=== PATIENT | male | born 1995 | race Native Hawaiian/Other Pacific Islander ===

== ENCOUNTER 2018-11-26 10:55 | Outpatient (CLI) | payer OTHER ==
[2018-11-26 11:34] VITALS: BP 90/50
--- NOTE | 2018-11-26 11:34 | SLEEP CARE CONSULTATION ---
Information from patient questionnaire entered by Jessy Vail. I have reviewed and concur with the information entered by Jessy Vail. This document represents the service I personally performed and the decisions made by me, Rashawn James MD, [facility]. History of Present Illness Reason for Visit: New patient Chief Complaint: reports: Snoring, Observed pauses in breathing Usual bedtime: 2300 Time it takes to fall asleep: 30 MINUTES Snores at night: Yes Observed to quit breathing while asleep: No Sleeps alone due to snoring: Yes Number of times waking at night: 1-2 Reasons for waking at night: reports: Snoring Toss, Turn, or Twitch while sleeping: Yes Recalls having dreams: Yes Usually gets out of bed at: 0600 Feels refreshed in the morning: No Morning headache: No Sleepy or fatigued during the day: Yes Ever fallen asleep while driving: No Takes day naps: No Dreams during day naps: Yes Prior sleep studies: No Additional HPI information: I had the pleasure of seeing Mr. Juarez today regarding the possibility of him having a sleep disorder. As you know, he is a 23 year old gentleman who states that his has been telling him that he quits breathing at night. The patient tells me that he normally goes to bed around 11 pm, and it takes him approximately 30 minutes to fall asleep. He has not been told that he snores loudly and irregularly at night. He has also been observed to stop breathing in his sleep. His occasionally has to sleep in a separate room. He can recall waking up on the average of 1 - 2 times during the night. Most of the time he wakes up because of his son. He has awakened occasionally because of his own snoring, choking, and having to gasp for air. There is a lot of tossing and turning in his sleep. No somniloquy (sleep talking) or somnambulism (sleep walking). Generally he can recall having dreams. In the morning he usually gets up out of the bed around 6 a.m. not feeling refreshed nor rested. He usually does not have a morning headache. During the day he complains of feeling sleepy and fatigued. His score on Blanding Sleepiness Scale is 14 out of 24. He has never fallen asleep while driving nor has had any accident due to sleepiness. He usually does not take naps during the day. He has never had sleep paralysis, experienced cataplexy or symptoms of restless leg syndrome. He reports having impaired concentration during the day. 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 Patient is and lives in [place]. Have you smoked in the past 12 months: No Alcohol use: No Caffeine use: No Family History Family history of sleep disordered breathing: Yes Family Hx Sleep Apnea: Grandparent: Snoring Allergies and Home Medications Drug allergies reviewed: Yes Home medication list reviewed: Yes Review of Systems Cardiovascular: denies: high blood pressure, palpitations, chest pain, irregular heart rate or pulse, leg or foot swelling, have to sleep sitting up, other Respiratory: denies: shortness of breath, wheeze, sputum production, chronic cough, other Gastrointestinal: denies: heartburn, difficulty swallowing, nausea, vomitting, diarrhea, abdominal pain, other Urinary: denies: incontinence, frequency, urgency, impotence, other Neurological: denies: headaches, seizure, head trauma, disorientation, speech dysfunction, gait or balance problems, fainting or unconsciousness, other Psychiatric: denies: Attention Deficit Hyperactivity, anxiety, depression, mood disorder, claustrophobia, other Ear/Nose/Throat: reports: nasal congestion, sinus problems Endocrine: denies: thyroid disease, history of goiter, sluggishness, too hot or cold, excessive thirst, increased appetite, increased urination, unexplained weakness, other Musculoskeletal: reports: back pain Immunologic: reports: sneezing Physical Exam Vital signs obtained and entered by: Dr. Sr Blood Pressure: 90/50 Heart Rate: 71 O2 Saturation: 97 Height: 5 ft 11 in Weight (kg): 175 lb Body Mass Index: 24.4 BMI Classification: Healthy weight Neck circumference: 14 Mood/affect: normal HEENT: No craniofacial malformation Nostrils: patent to airflow Turbinates: normal Septum: deviated right Mouth and throat: narrow oropharynx Soft palate: long Hard palate: normal Uvula: normal Uvula visualization: 50% Mallampati Class II Tongue: normal in size Tonsils: small Chin and jaw: normal size and position Neck: normal w/o lymphadenopathy or thyromegaly Heart: regular rate and rhythm Lungs: clear bilaterally Abdomen: soft, non-tender Extremities: no edema or clubbing Neurologic: intact, no focal deficits Impression and Plan IMPRESSION: 1. Obstructive Sleep Apnea-Hypopnea Syndrome, as suggested by history of loud and irregular snoring, observed cessation of breath while asleep, unrefreshed sleep, cognitive impairment, and daytime hypersomnolence. Narrow oropharynx is a common predisposing factor for obstructive sleep apnea-hypopnea syndrome. Pathophysiology of sleep-disordered breathing was discussed. I recommend proceeding to polysomnography to confirm the diagnosis and to assess severity. I informed the patient of what the sleep studies involve and after some discussion, he agreed to proceed. Plan: 1. Schedule polysomnography and return in 1 to 2 weeks after the study to discuss result and initiate therapy. 2. Avoid long distance driving or when feeling sleepy. 3. Avoid alcohol, sedative and muscle relaxant around bedtime. I spent 100% of this 15 minute visit face to face with the patient with greater than 50% of this was spent time counseling the patient and coordination of care.
== END 2018-11-26 10:56 | disposition home or self-care (01) ==
LOC: SC 10:55
PROVIDERS: ATTEND Internal Medicine Pulmonary Disease
DX: R06.83 Snoring (principal); R06.81 Apnea, not elsewhere classified; G47.8 Other sleep disorders; R41.89 Other symptoms and signs involving cognitive functions and awareness; G47.10 Hypersomnia, unspecified
CPT/HCPCS: 99203; 99212

== ENCOUNTER 2018-12-12 19:10 | Outpatient (CLI) | payer OTHER | END 2018-12-12 19:11 | disposition home or self-care (01) | LOC: SC 19:10 | PROVIDERS: ATTEND Internal Medicine Pulmonary Disease | DX: R06.83 Snoring (principal) | CPT/HCPCS: 95810 ==

== ENCOUNTER 2019-02-11 16:09 | Outpatient (CLI) | payer OTHER ==
[2019-02-11 17:05] VITALS: BP 102/60
--- NOTE | 2019-02-11 17:05 | SLEEP CARE CONSULTATION ---
Information from patient questionnaire entered by Jessy Vail. I have reviewed and concur with the information entered by Jessy Vail. This document represents the service I personally performed and the decisions made by me, Lizzy Cavazos, RN, MSN, [employer]. History of Present Illness Reason for follow up: with sleep study Prior sleep studies: Yes Year and Where: 2018 [facility] additional information: NARESH SANTIAGO returns for follow up of the recently performed polysomnography and informed of findings. I explained the pathophysiology behind obstructive sleep apnea. Patient does not have sleep apnea and was advised how weight gain could increase the risk of developing sleep apnea in the future. I strongly encouraged the patient not to gain weight. He is currently at normal weight. Patient has mild to loud snoring. Snoring can be reduced by weight loss. However, he is at normal weight and snored at lower weight per sibling. Snoring can also be treated with an oral appliance from a dentist. He is interested. Advised to check insurance coverage. In addition, an ENT evaluation can be do to see if other treatment is indicated. Patient generally has difficulty breathing out of one nostril which could contribute to snoring. Patient counseled not drink alcohol less than 4 hours before bedtime as it can increase snoring and apnea. Patient does not drink alcohol. Patient was cautioned about risks of drowsy driving until sleepiness symptoms resolve. Patient denies drowsy driving. AAS patient education on snoring and sleep apnea given and reviewed for reference. Bedtime is 10pm and wake time is 4am to help care for son. Sleep Study - Polysomnography Polysomnography findings: The quality of the study is good. The patient had normal sleep efficiency. The sleep architecture was normal as well. Respiratory monitoring showed no significant sleep disordered breathing (AHI = 0.5) or hypoxia (manas oxygen saturation of 89%). The patient slept adequately in supine position (supine AHI = 0.2; nonsupine = 0.84). Snore was light to loud in intensity. There was no significant periodic leg movement of sleep. Cardiac rhythm was normal sinus rhythm without significant arrhythmia. No abnormal behavior (parasomnia) observed during the night. Subjective Initial Raphine Sleepiness Scale score: 14 Current Raphine Sleepiness Scale score: 9 Allergies and Home Medications Known drug allergies: No Home medication list reviewed: No (none) Review of Systems Review of systems same as previous: Yes Physical Exam Blood Pressure: 102/60 Cuff size: regular Heart Rate: 73 O2 Saturation: 98 Height: 5 ft 11 in Weight: 183 lb 12.8 oz (with full fatigues and boots ) Body Mass Index: 25.6 BMI Classification: Overweight Impression and Plan 1. Snoring but no significant sleep disordered breathing. Patient advised that often weight loss will reduce snoring as well as apnea risk but patient at normal weight. An oral appliance can also be used for snoring. This would require a dental consultation. Patient cautioned not to use other online appli ances as can cause bite issues. Patient is interested in this. A list of accredited dentists in area and one local dentist who makes oral appliances. Patient is advised to check if insurance will cover. An ENT consult can also be helpful to determine if any other treatment is an option. Because patient has difficulty breathing through his nose, I recommend he follow up with his PCP for a referral. 2. Fatigue, that could be related to insufficient sleep. He is currently only getting about 5 hours a night due to waking early tp care of son. Thus he is advised to go to bed earlier. Most people require 7-9 hours of sleep for optimal mental and physical function. Less than 5-6 hours can increase health risks.Thus patient advised to go to bed earlier about 15 minutes earlier a night with goal of 7 hours of sleep. If he is still fatigued after adequate sleep then he is to follow up with his PCP for further evaluaiont * Do not gain weight * Follow up with PCP for referral to ENT * Avoid alcohol consumption near bedtime * The patient is cautioned about driving until sleepiness is completely resolved. * Return as needed. I spent 100% of this 25 minute visit face to face with the patient with greater than 50% of this was spent time counseling the patient and coordination of care.
== END 2019-02-11 16:10 | disposition home or self-care (01) ==
LOC: SC 16:09
PROVIDERS: ATTEND Nurse Practitioner Family
DX: R06.83 Snoring (principal); R53.83 Other fatigue
CPT/HCPCS: 99212; 99214

== ENCOUNTER 2019-04-25 08:03 | Emergency (ER) | payer OTHER ==
[2019-04-25 08:12] VITALS: BP 108/94
--- NOTE | 2019-04-25 08:44 | XRAY Report ---
Reason: injury Procedure Date: 04/25/2019 Accession Number: [id number] / [id number] Procedure: XR - Ankle 3 View LT CPT Code: Final Report FULL RESULT: EXAM: LEFT ANKLE RADIOGRAPHY EXAM DATE: 04/25/2019 08:36 AM. CLINICAL HISTORY: Injury. COMPARISON: None. TECHNIQUE: 3 views. FINDINGS: Bones: Normal. No fractures or bone lesions. Joints: Normal. No effusion. No subluxations. The ankle mortise is normally aligned. Soft Tissues: Mild to moderate left ankle soft tissue swelling noted. No radiopaque foreign bodies are noted. IMPRESSION: 1. No fracture or malalignment. 2. Ankle mortise intact. 3. Mild to moderate left ankle swelling. 4. If patient remains symptomatic, recommend radiographs in 10-14 days. RADIA
--- NOTE | 2019-04-25 08:58 | ED Physician Documentation ---
PD HPI LOWER EXT INJURY - Stated complaint Stated Complaint: L ANKLE INJURY - Chief complaint Chief Complaint: Ext Problem - History of Present Illness PD HPI LOW EXT INJURY LOCATION: Left, Ankle Type of injury: Twist Where injury occurred: Street Timing - onset: Today Timing - duration: Minutes Timing - details: Abrupt onset, Still present Improved by: Rest, Ice, Immobilization Worsened by: Moving, Palpating Associated symptoms: Swelling Contributing factors: No: Anticoagulated Similar symptoms before: Has not had sx before Recently seen: Not recently seen - Additional information Additional information: Previously well 23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 He is not able to bear weight on this without significant pain and he presents to the emergency department with his and child. Review of Systems Constitutional: denies: Fever Eyes: denies: Decreased vision Ears: denies: Ear pain Nose: denies: Congestion Throat: denies: Sore throat Respiratory: denies: Dyspnea, Cough GI: denies: Vomiting PD PAST MEDICAL HISTORY - Allergies Allergies/Adverse Reactions: Allergies Allergy/AdvReac Type Severity Reaction Status Date / Time ibuprofen Allergy Edema Verified 04/25/19 08:13 PD ED PE NORMAL - Vitals Vital signs reviewed: Yes (hypertensive ) - General General: Alert and oriented X 3, No acute distress, Well developed/nourished - HEENT HEENT: Atraumatic, PERRL, EOMI - Respiratory Respiratory: No respiratory distress - Derm Derm: Normal color, Warm and dry, No rash - Extremities Extremities: Other (There is swelling and point tenderness over the talo calcaneal ligament. There is mild tenderness to the medial malleolus and there is no tenderness to the proximal fifth. The distal neurovascular components are intact. 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 No fracture or malalignment. 2 Ankle mortise intact. 3 Mild to moderate left ankle swelling. 4 If patient remains symptomatic, recommend radiographs in 10 to 14 days.), EMP read indepedently, See rad report Procedures - Splint (location) ankle Splint applied by: Tech Type of splint: Ankle airsplint Other: Patient tolerated well, No complications, Neurovascular intact, Good alignment, Crutches provided PD MEDICAL DECISION MAKING - ED course Complexity details: reviewed results, re-evaluated patient, considered differential, d/w patient, d/w family ED course: 23-year-old male with a left ankle sprain is placed into an Aircast. Departure - Departure Disposition: 01 Home, Self Care Clinical Impression: Ankle sprain Qualifiers: Encounter type: initial encounter Involved ligament of ankle: calcaneofibular ligament Laterality: left Qualified Code(s): S93.412A - Sprain of calcaneofibular ligament of left ankle, initial encounter Condition: Stable Instructions: ED Sprain Ankle W X Ray Follow-Up: HIRA GODOY MD [Primary Care Provider] -
== END 2019-04-25 09:45 | disposition home or self-care (01) ==
LOC: ED 08:03
DX: S93.412A Sprain of calcaneofibular ligament of left ankle, initial encounter (principal); X50.1XXA Overexertion from prolonged static or awkward postures, initial encounter; Y93.02 Activity, running; Y92.830 Public park as the place of occurrence of the external cause
CPT/HCPCS: 99282; 99283